=== PATIENT | female | born 1995 | race African-American/Black ===

== ENCOUNTER 2024-05-23 16:57 | Emergency (ER) | payer SELFPAY ==
[~2024-05-23] VITALS: Ht 165.1 cm; Wt 59.0 kg
[2024-05-23 17:08] VITALS: BP 140/80; PULSE 60; RESP 16; TEMP 97; O2SAT 100
[2024-05-23] MEDS ORDERED: TOPUD MT (18:51)
[2024-05-23] MEDS ORDERED: ACETAMINOPHEN 325MG TABLET PO ONE (19:00)
[2024-05-23] MEDS ORDERED: BACITRACIN ZINC OINT UDPKT TOP ONE (19:00)
== END 2024-05-23 20:12 | disposition home or self-care (01) ==
LOC: ER 16:57
DX: S50.811A Abrasion of right forearm, initial encounter (principal); S20.419A Abrasion of unspecified back wall of thorax, initial encounter; M79.10 Myalgia, unspecified site; V49.49XA Driver injured in collision with other motor vehicles in traffic accident, initial encounter; Y93.89 Activity, other specified; Y92.89 Other specified places as the place of occurrence of the external cause; Y99.8 Other external cause status
CPT/HCPCS: 99283; Z7610 ×3